=== PATIENT | female | born 1985 | race Caucasian/White ===

== ENCOUNTER 2016-10-18 17:49 | Emergency (ER) | payer MEDICAID, OTHER ==
[~2016-10-18] VITALS: Ht 172.7 cm; Wt 72.7 kg
[2016-10-18] MEDS ORDERED: ONDANSETRON 4MG/2ML VIAL (J2405) IV ONE (19:30)
[2016-10-18] MEDS ORDERED: NS 1,000 ML IV ONE (19:30)
[2016-10-18 20:11] LABS: CONTROL LINE UCG INT CTR LINE PRESENT
[2016-10-18 20:15] LABS: BASO % 0.6 % (0.0-1.0); EOS # 0.2 K/mm3 (0.0-0.50); EOS % 1.7 % (0.0-3.0); LARGE UNSTAINED CELL # 0.1 K/mm3 (0.0-0.4); LARGE UNSTAINED CELL % 0.6 % (0.0-4.0); LYMPH # 2.2 K/mm3 (1.5-6.5); LYMPH % 23.9 % (24.0-44.0); MEAN CORPUSCULAR HEMOGLOBIN 29.3 pg (27.0-33.0); MEAN CORPUSCULAR HGB CONC 35.6 g/dl (32.0-36.5); MEAN CORPUSCULAR VOLUME 82.3 fl (80.0-96.0); MONO # 0.5 K/mm3 (0.0-0.8); MONO % 5.3 % (0.0-5.0); NEUTROPHILS # 6.2 K/mm3 (1.8-7.7); NEUTROPHILS % 67.9 % (36.0-66.0); PLATELET COUNT, AUTOMATED 272 k/mm3 (150-450); RED CELL DISTRIBUTION WIDTH 13.1 % (11.5-14.5); WHITE BLOOD COUNT 9.1 K/mm3 (4.0-10.0)
[2016-10-18] MEDS: MORPHINE 4 MG/ML 1ML SYRINGE IV PRN ×2 (20:46→22:09)
--- NOTE | 2016-10-18 20:50 | REPUSA ---
CLINICAL HISTORY: Abdominal pain. TECHNIQUE: Realtime sonographic images were obtained in multiple projections. COMMENTS: The liver is of normal size, parenchyma demonstrates normal echogenicity. No discrete hepatic mass is seen. There is no intra or extrahepatic biliary ductal dilatation. CBD measures 3 mm. The gallbladder is di stended without evidence of calculi. The gallbladder wall is upper limits of normal, 3 mm. There is n o pericholecystic fluid. No Golden sign was reported. There is no abdominal ascites. The right kidney measures 10.3 cm , free of hydronephrosis. IMPRESSION: Distended gallbladder with borderline thickened wall. Chronic acalculous cholecystitis is not exclu ded. Consider follow-up with hepatobiliary scan. Thank you for your kind referral of this patient.
[2016-10-18 20:56] LABS: ALBUMIN 4.2 GM/DL (3.2-5.2); ALBUMIN/GLOBULIN RATIO 1.35 (1.00-1.93); ALKALINE PHOSPHATASE 97 U/L (45-117); ALT/SGPT 34 U/L (12-78); AMYLASE 35 U/L (25-115); ANION GAP 9 MEQ/L (8-16); AST/SGOT 16 U/L (15-37); BILIRUBIN,DIRECT 0.1 MG/DL (0.0-0.2); BILIRUBIN,TOTAL 0.6 MG/DL (0.2-1.0); BLOOD UREA NITROGEN 10 MG/DL (7-18); CALCIUM LEVEL 9.3 MG/DL (8.5-10.1); CARBON DIOXIDE LEVEL 25 MEQ/L (21-32); CHLORIDE LEVEL 107 MEQ/L (98-107); CREATININE FOR GFR 0.71 MG/DL (0.55-1.02); GLOMERULAR FILTRATION RATE > 60.0 (>60); GLUCOSE, FASTING 97 MG/DL (70-105); POTASSIUM SERUM 3.7 MEQ/L (3.5-5.1); SODIUM LEVEL 141 MEQ/L (136-145); TOTAL PROTEIN 7.3 GM/DL (6.4-8.2)
[2016-10-18] MEDS ORDERED: cefTRIAXone SOD 1 GM in D5W MINI-BAG PLUS 50 ML IV ONE (21:30)
[2016-10-18] MEDS ORDERED: CIPR-249 PO (22:13)
[2016-10-18] MEDS ORDERED: ZOFR4TAB3 PO (22:13)
[2016-10-18] MEDS ORDERED: IBUP-1022 PO (22:26)
[2016-10-18] MEDS ORDERED: NORCOTAB PO (22:26)
[2016-10-18 22:56] VITALS: BP 105/63
[2016-10-18] MEDS ORDERED: DIFL150T PO (23:00)
--- NOTE | 2016-10-21 13:02 | ED PDOC ---
Post-Departure Follow-Up dr conte faxed formal report of us for fu Brittny Reese MD Oct 21, 2016 13:02
== END 2016-10-18 23:01 | disposition home or self-care (01) ==
LOC: M ED 17:49
DX: K81.1 Chronic cholecystitis (principal); N39.0 Urinary tract infection, site not specified; Z72.0 Tobacco use
CPT/HCPCS: 76705; 80048; 80076; 81001; 82150; 83690; 84703; 85025; 87088; 87186; 96361; 96374; 96375; 99283; J0696; J2405

== ENCOUNTER → 2016-11-11 | Outpatient (CLI) | payer MEDICAID ==
[~2016-11-11] MED LIST: CIPR-249 PO; DIFL150T PO; IBUP-1022 PO; NORCOTAB PO; ZOFR4TAB3 PO
--- NOTE | 2016-11-11 10:58 | REP ---
Hepatobiliary scan and gallbladder ejection fraction: History: Right upper quadrant pain. Technique: 6.6 mCi of technetium-99m mebrofenin was injected and sequential anterior images are acquired. 65 minutes after the mebrofenin injection, the patient consumed 8 ounces Ensure and an additional 60 minutes of imaging was acquired. Regions of interest are plotted around the gallbladder. Findings: The initial hepatocellular parenchymal uptake phase is normal and homogeneous. Intra- and extra-hepatic bile ducts and duodenum are labeled by the 10 -minute image. The gallbladder is first labeled on the 10 -minute image. There is normal washout from the liver parenchyma into the gallbladder and small intestine on subsequent images. The gallbladder ejection fraction is 83 %. Values greater than 35 % are considered normal with this technique. Impression: Normal hepatobiliary scan and normal gallbladder ejection fraction. Signed by Carlos A Glaser MD 11/11/2016 10:51 A
== END ==
LOC: M RAD 07:41
PROVIDERS: ATTEND Surgery
DX: R10.11 Right upper quadrant pain (principal)
CPT/HCPCS: 78227; A9537; J2805

== ENCOUNTER 2018-04-02 11:43 | Emergency (ER) | payer MEDICAID, OTHER ==
[~2018-04-02] VITALS: Ht 172.7 cm; Wt 81.6 kg
[~2018-04-02 11:43] MED LIST changes: +ZOFR4TAB14 PO; -ZOFR4TAB3 PO
[2018-04-02] MEDS ORDERED: CHANTEX (11:51)
[2018-04-02] MEDS ORDERED: KETOROLAC 30 MG/ML VIAL (J1885) IV ONE (13:15)
[2018-04-02 13:42] LABS: BASO # 0.1 10^3/uL (0.0-0.2); BASO % 0.5 % (0.0-1.0); EOS # 0.2 10^3/uL (0.0-0.50); EOS % 2.1 % (0.0-3.0); HEMATOCRIT 43.9 % (36.0-47.0); HEMOGLOBIN 14.6 g/dl (12.0-15.5); LYMPH # 2.6 10^3/uL (1.5-4.5); LYMPH % 27.1 % (24.0-44.0); MEAN CORPUSCULAR HEMOGLOBIN 28.6 pg (27.0-33.0); MEAN CORPUSCULAR HGB CONC 33.3 g/dl (32.0-36.5); MEAN CORPUSCULAR VOLUME 85.9 fl (80.0-96.0); MONO # 0.5 10^3/uL (0.0-0.8); MONO % 5.5 % (0.0-5.0); NEUTROPHILS # 6.1 10^3/uL (1.8-7.7); NEUTROPHILS % 64.6 % (36.0-66.0); PLATELET COUNT, AUTOMATED 265 10^3/uL (150-450); RED BLOOD COUNT 5.11 10^6/uL (4.00-5.40); WHITE BLOOD COUNT 9.5 10^3/uL (4.0-10.0)
--- NOTE | 2018-04-02 13:58 | REP ---
Clinical: Trauma. Technique: Axial noncontrast images through the thoracic spine with coronal and sagittal re-formations. Findings: Alignment and kyphosis maintained. Vertebral bodies are intact. There is no evidence for acute fracture / compression injury or subluxation. Posterior elements and spinous processes are intact. Neural foramen are patent. Spinal canal is normal. Paravertebral soft tissues are normal. Impression: Normal thoracic spine CT. No evidence for acute pathology or trauma/injury Electronically Signed by Dario South MD 04/02/2018 01:50 P
[2018-04-02 14:15] LABS: BLOOD UREA NITROGEN 9 MG/DL (7-18); CARBON DIOXIDE LEVEL 26 MEQ/L (21-32); CHLORIDE LEVEL 106 MEQ/L (98-107); CREATININE FOR GFR 0.72 MG/DL (0.55-1.30); FREE T4 1.07 NG/DL (0.76-1.46); GLOMERULAR FILTRATION RATE > 60.0 (>60); GLUCOSE, FASTING 90 MG/DL (70-100); MAGNESIUM LEVEL 2.1 MG/DL (1.8-2.4); PHOSPHORUS LEVEL 3.3 MG/DL (2.5-4.9); POTASSIUM SERUM 3.8 MEQ/L (3.5-5.1); SODIUM LEVEL 140 MEQ/L (136-145)
[2018-04-02] MEDS ORDERED: MORPHINE 4 MG/ML 1ML VIAL/SYRINGE (J2270) IV ONE (15:00)
[2018-04-02] MEDS ORDERED: CYCL10TA PO (16:29)
[2018-04-02 16:46] VITALS: BP 139/89
== END 2018-04-02 16:49 | disposition home or self-care (01) ==
LOC: M ED 11:43
DX: M54.6 Pain in thoracic spine (principal); M16.0 Bilateral primary osteoarthritis of hip; Z88.8 Allergy status to other drugs, medicaments and biological substances; Z91.018 Allergy to other foods; Z91.040 Latex allergy status; F17.210 Nicotine dependence, cigarettes, uncomplicated
CPT/HCPCS: 72128; 80048; 83735; 84100; 84439; 84443; 85025; 96374; 96375; 99284; J1885; J2270